=== PATIENT | male | born 1955 | race African-American/Black ===

== ENCOUNTER 2017-12-18 13:50 | Emergency (ER) | payer OTHER ==
--- NOTE | 2017-12-18 14:40 | ED Physician Documentation ---
Upper Extremity Injury - HISTORIAN Historian: patient - HPI Stated Complaint: L hand swelling/pain Chief Complaint: Upper Extremity Problem Additional Information: Right hand swollen and painful. Began yesterday, but has gotten much worse today. No injury noted. Never had these symptoms before. Mo modifying factors or associated signs. Severity: moderate, severe - ROS CONST: no problems - PAST HX Past History: Lt handed, other (HTN, HLD, Toenail fungus) Allergies/Adverse Reactions: Allergies Allergy/AdvReac Type Severity Reaction Status Date / Time No Known Allergies Allergy Verified 12/18/17 14:10 Home Medications: Ambulatory Orders Medication Instructions Recorded Aspirin EC [Ecotrin] 81 mg PO DAILY 12/18/17 Lisinopril/Hydrochlorothiazide 1 tab PO DAILY 12/18/17 [Zestoretic 10-12.5 mg Tablet] Naproxen 500 mg PO Q12H #14 tablet 12/18/17 oxyCODONE HCL/ACETAMINOPHEN 1 tab PO QID PRN 12/18/17 [Percocet 5/325] predniSONE [Deltasone] 20 mg PO QD #7 tablet 12/18/17 - SOCIAL HX Smoking History: cigarettes Alcohol Use: other (6 beers/day) - FAMILY HX Family History: no significant history - VITAL SIGNS Vital Signs: Vital Signs Temp Pulse Resp BP Pulse Ox 98.6 F 95 H 20 189/91 94 12/18/17 14:04 12/18/17 14:04 12/18/17 14:04 12/18/17 14:04 12/18/17 14:04 - REVIEWED ASSESSMENTS Nursing Assessment Reviewed: Yes Vitals Reviewed: Yes Progress - Progress Progress: Report Submission Date: Dec 18, 2017 2:32:56 PM CDT Patient Study Name: TATYANA LEZAMA Date: Dec 18, 2017 2:07:43 PM CDT Modality Type: DX Gender: M Description: UPPER EXTREMITY : 57 Institution: [facility] Physician: RENE SANTILLAN - ER Left hand three views History: Pain and swelling Findings: The left hand is diffusely swollen without fracture, dislocation, arthropathy, or focal bone lesion. Electronically signed on Dec 18, 2017 2:32:56 PM CDT by: Minh Woody ED Results Lab/Radiology - Orders Orders: ED Orders Category Date Time Status HAND 3 VIEWS OR MORE [RAD] Stat Exams 12/18/17 Taken Upper Extremity Injury Physic - Physical Exam General Appearance: mild distress Hand: no evidence of injury, limited ROM (2/2 pain. any passive motion of left thumb produces marked pain response), swelling (diffuse entire left hand, wose entire left thumb) Wrist: normal inspection, non-tender, no evidence of injury, normal ROM (left radial pulse 2+) Elbow/Forearm: normal inspection, no evidence of injury Shoulder: normal inspection, no evidence of injury Neuro/Vascular/Tendon: no vascular compromise, motor nml, sensation nml Skin: warm,dry Head/ENT: nml inspection Neck/Back: nml inspection Resp/CVS: no resp. distress Abdomen: pelvis stable Discharge Clincal Impression: Gout Qualifiers: Gout site: hand Gout etiology: unspecified cause Chronicity: acute Laterality: left Qualified Code(s): M10.9 - Gout, unspecified Referrals: Primary Doctor,No [Primary Care Provider] - 2 Days Condition: Fair Disposition: 01 HOME, SELF-CARE Decision to Admit: NO Decision Time: 14:50
[2017-12-18 15:24] LABS: BASOPHILS % 0.3 (0.0-1.5); EOSINOPHILS % 3.4 % (0.0-6.8); MEAN CORPUSCULAR HEMOGLOBIN 31.6 pg (28.0-34.0); MEAN CORPUSCULAR VOLUME 97.8 fl (80.0-100.0); NEUTROPHILS # 4.1 # k/uL (1.4-7.7)
[2017-12-18 15:47] LABS: eGFR (African) > 60; eGFR (Non-African) > 60
--- NOTE | 2017-12-18 16:12 | Diagnostic Imaging Report ---
RENE SANTILLAN [facility] [address] [facility] [address] [address] Report Submission Date: Dec 18, 2017 2:32:56 PM CDT Patient Study Name: TATYANA LEZAMA Date: Dec 18, 2017 2:07:43 PM CDT Modality Type: DX Gender: M Description: UPPER EXTREMITY : 57 Institution: [facility] Physician: RENE SANTILLAN Left hand three views History: Pain and swelling Findings: The left hand is diffusely swollen without fracture, dislocation, arthropathy, or focal bone lesion. Electronically signed on Dec 18, 2017 2:32:56 PM CDT by: Minh ALCANTAR
[2017-12-18 16:36] VITALS: BP 189/91
== END 2017-12-18 15:00 | disposition home or self-care (01) ==
LOC: ED 13:50
DX: M10.9 Gout, unspecified (principal)
CPT/HCPCS: 73130; 80053; 84550; 85025

== ENCOUNTER 2018-10-25 10:54 | Emergency (ER) | payer OTHER | END 2018-10-25 11:30 | LOC: ED 10:54 | DX: K14.6 Glossodynia (principal) ==